=== PATIENT | female | born 1945 | race Caucasian/White ===

== ENCOUNTER 2020-07-21 12:14 | Emergency (ER) | payer MEDICARE ==
[~2020-07-21] VITALS: Ht 154.9 cm; Wt 60.4 kg
[2020-07-21 13:20] LABS: MICROSCOPIC AUTO
--- NOTE | 2020-07-21 13:50 | NUR ---
[employer]PER[employer]ENT: PT TO ROOM FROM [facility] MAYNARD
[2020-07-21 13:54] LABS: BASOPHILS % (AUTO) 1 % (0-1); EOSINOPHILS % (AUTO) 2 % (1-7); LYMPHOCYTES % (AUTO) 20 % (22-44); MEAN CORPUSCULAR HGB CONC 34.1 g/dL (32.4-35.8); MEAN PLATELET VOLUME 8.7 fL (7.4-10.4); MONOCYTES % (AUTO) 7 % (2-9); NEUTROPHILS % (AUTO) 70 % (42-75); PLATELET COUNT 242 x10^3/uL (130-400); RED BLOOD COUNT 3.79 x10^6/uL (3.82-5.3); RED CELL DISTRIBUTION WIDTH 15.3 % (9.6-15.2)
[2020-07-21 13:57] LABS: MD NO
[2020-07-21 14:04] LABS: ANION GAP 5 mmol/L (5-15); CHLORIDE 110 mmol/L (98-107)
--- NOTE | 2020-07-21 14:06 | NUR ---
ASSUMED CARE OF PATIENT. REPORTS PT HAS DEMENTIA. PT REPORTS CENTER ABD PAIN, PT ALSO HAS BILATERAL FEET SWELLING. VS STABLE. CALL LIGHT IN PLACE. AT BEDSIDE. CALL LIGHT IN PLACE. WILL CONTINUE TO MONITOR.
[2020-07-21 14:08] LABS: ALANINE AMINOTRANSFERASE 29 U/L (12-78); ALKALINE PHOSPHATASE 69 U/L (45-117); BILIRUBIN,TOTAL 0.8 mg/dL (0.2-1.0); CREATININE 0.91 mg/dL (0.55-1.02); TOTAL PROTEIN 7.6 g/dL (6.4-8.2)
--- NOTE | 2020-07-21 14:47 | NUR ---
DR WILLINGHAM HAS UPDATED PATIENT
--- NOTE | 2020-07-21 14:58 | NUR ---
FAMILY AT BEDSIDE. VS STABLE. NO ACUTE DISTRESS NOTED. CALL LIGHT IN PLACE. WILL CONTINUE TO MONITOR.
[2020-07-21 15:06] VITALS: BP 149/71
--- NOTE | 2020-07-21 15:06 | NUR ---
DR WILLINGHAM IS IN ROOM UPDATING PATIENT
[2020-07-21] MEDS ORDERED: MAGNESIUM CITRATE 300ML ORAL SOL ONE (15:16)
[2020-07-21] MEDS ORDERED: MAGNESIUM CITRATE 300ML ORAL SOL PO ONE (15:30)
== END 2020-07-21 15:24 | disposition home or self-care (01) ==
LOC: ED 14:30
DX: R60.0 Localized edema (principal); K59.00 Constipation, unspecified
CPT/HCPCS: 36415; 74021; 80053; 81001; 83690; 85025; 87086; 99284